=== PATIENT | female | born 1995 | race Caucasian/White ===

== ENCOUNTER 2019-11-07 22:11 | Emergency (ER) | payer MEDICAID ==
[~2019-11-07] VITALS: Ht 172.7 cm; Wt 59.1 kg
[2019-11-07 22:12] VITALS: BP 115/77
== END 2019-11-07 23:37 | disposition left against medical advice (07) ==
LOC: EMS 22:11
DX: S09.90XA Unspecified injury of head, initial encounter (principal); V49.40XA Driver injured in collision with unspecified motor vehicles in traffic accident, initial encounter; Y93.89 Activity, other specified; Y92.89 Other specified places as the place of occurrence of the external cause; Y99.8 Other external cause status; Z53.21 Procedure and treatment not carried out due to patient leaving prior to being seen by health care provider